=== PATIENT | male | born 1970 | race Caucasian/White ===

== ENCOUNTER → 2021-01-30 | Outpatient (CLI) | payer SELFPAY ==
[2021-01-30 14:47] LABS: SEMEN VOLUME 4.1 ML (1.5-5.0)
== END ==
LOC: LAB 13:57
PROVIDERS: ATTEND Surgery
DX: N46.9 Male infertility, unspecified (principal)
CPT/HCPCS: 89320

== ENCOUNTER 2021-09-12 19:40 | Emergency (ER) | payer BC ==
[~2021-09-12] VITALS: Ht 193 cm; Wt 138.0 kg
--- NOTE | 2021-09-12 19:56 | ED General ---
General Stated Complaint: SOB/DIZZY/ BP 177/127 Source of Information: Patient Exam Limitations: No Limitations History of Present Illness Date Seen by Provider: September 12, 2021 Time Seen by Provider: 19:51 Initial Comments Patient is a 50-year-old male who presents to the emergency department today with a chief complaint of mild headache, feeling a little short of breath, feeling a little dizzy and quite elevated blood pressures. He has had sinus congestion over the last week or so and has been taking [id number] cold and cough medications. He has known hypertension and recently had an increase in his lisinopril from 20 to 40 mg. He states he was not feeling very good today laid down and took a nap and when he got up felt like he was just needing to take extra breaths. No chest pain no shoulder pain no neck pain or back pain. He does not have a productive cough. Occasionally has some sinus congestion. Works as a social services technician. States that he is fully vaccinated for COVID. He is unsure whether or not he has been in contact with any COVID- positive persons. He is a smoker. Nothing makes the symptoms any better or any worse. He is also been taking a little Tylenol in addition to the cold medications. States his blood pressure has never been quite this high in the past. All other review of systems reviewed and negative except as stated. Timing/Duration: 4-6 Hours Severity: Mild Associated Systoms: Headaches (Mild), Other (Little short of breath a little dizzy) Allergies and Home Medications Allergies Coded Allergies: No Known Drug Allergies (Unverified , 09/12/21) Patient Home Medication List Home Medication List Reviewed: Yes Review of Systems Review of Systems Constitutional: see HPI EENTM: nose congestion Respiratory: cough (Minimal), short of breath Cardiovascular: no symptoms reported Gastrointestinal: no symptoms reported Genitourinary: no symptoms reported Musculoskeletal: no symptoms reported Skin: no symptoms reported Psychiatric/Neurological: Headache (Mild), Other (Mild disease) All Other Systems Reviewed Negative Unless Noted: Yes Physical Exam Vital Signs Vital Signs - First Documented 09/12/21 19:45 Temp 36.8 Pulse 98 Resp 18 B/P (MAP) 201/123 (149) Pulse Ox 98 O2 Delivery Room Air Capillary Refill : Height, Weight, BMI Height: '" Weight: lbs. oz. kg; BMI Method: General Appearance: No Apparent Distress, WD/WN Eyes: Bilateral Eye Normal Inspection, Bilateral Eye PERRL, Bilateral Eye EOMI HEENT: PERRL/EOMI, Pharynx Normal, TM Abnormal (R) (Occluded by cerumen) Neck: Normal Inspection, Non Tender, Supple Respiratory: Lungs Clear, Normal Breath Sounds, No Accessory Muscle Use, No Respiratory Distress Cardiovascular: Regular Rate, Rhythm (Heart rate 100), Normal Peripheral Pulses Extremity: Normal Inspection, Normal Range of Motion, Non Tender, No Calf Tenderness, No Pedal Edema Neurologic/Psychiatric: Alert, Oriented x3, No Motor/Sensory Deficits, Normal Mood/Affect, disability manager II-XII Norm as Tested Skin: Normal Color, Warm/Dry Progress/Results/Core Measures Suspected Sepsis SIRS Temperature: Pulse: Respiratory Rate: Blood Pressure / Mean: Results/Orders Lab Results Laboratory Tests Test 09/12/21 20:05 Range/Units SARS-CoV-2 RNA (RT-PCR) Not Detected Not Detecte My Orders Orders - ANA MEDINA MD Ekg Tracing (09/12/21 20:00) Chest Pa/Lat (2 View) (09/12/21 20:00) Covid 19 Inhouse Test (09/12/21 20:00) Isolation Central Supply Req (09/12/21 20:00) Clonidine Tablet (Catapres Tablet) (09/12/21 20:00) Medications Given in ED Current Medications Medications Dose Ordered Sig/Camelia Route Start Time Stop Time Status Last Admin Dose Admin Clonidine HCl 0.1 mg ONCE ONCE PO 09/12/21 20:00 09/12/21 20:03 DC 09/12/21 20:12 0.1 MG Vital Signs/I&O 09/12/21 19:45 Temp 36.8 Pulse 98 Resp 18 B/P (MAP) 201/123 (149) Pulse Ox 98 O2 Delivery Room Air Capillary Refill : Progress Note : Time: 21:29 Progress Note Patient is feeling much better as his blood pressure numbers have been coming down. I reviewed his chest x-ray and it is completely normal. His COVID test is negative. His EKG is reassuring. He actually feels less short of breath currently. He was able to get his son to text him a picture of the cough and cold medications that he has been taking. One of them is a pseudoephedrine medication the other 1 is a phenylephrine medication. These have likely been driving up his blood pressure and contributing to his overall symptoms. We talked about alternative medications to these. I suggested an allergy pill such as Zyrtec or Kenia without the decongestant and Coricidin HBP. Return precautions are discussed. Patient verbalized understanding, all questions are sought and answered ECG Initial ECG Impression Date: September 12, 2021 Initial ECG Impression Time: 20:15 Initial ECG Rate: 85 Initial ECG Rhythm: Normal Sinus Initial ECG Intervals: Normal Initial ECG Intervals UT 149 QRS [address]Tc [address] segment elevation or depression is noted, no ectopy. Counseling-Symptomatic: 3-10 Minutes Follow-up with PCP to: Discuss Further Options Departure Impression Primary Impression: Elevated blood pressure reading Additional Impression: Adverse effects of medication Qualified Codes: T50.905A - Adverse effect of unspecified drugs, medicaments and biological substances, initial encounter Disposition: HOME, SELF-CARE Condition: Stable Departure-Patient Inst. Decision time for Depature: 21:31 Referrals: [facility] – [place] (PCP/Family) Primary Care Physician Patient Instructions: High Blood Pressure in Adults Add. Discharge Instructions: Continue your daily medications as prescribed. Drink plenty of fluids to stay well-hydrated. You can take an over the counter allergy pill such as Kenia or Zyrtec (without the "D" for decongestant). Also CORIDIN HBP (or generic equivalent) is safe for patients with high blood pressure - it contains acetaminophen, chlorphineramine and dextromethorphan. These medications will not affect your BP. Return to the Emergency Department for any new, concerning or emergent complaints. ANA MEDINA MD September 12, 2021 19:56
[2021-09-12] MEDS ORDERED: cloNIDine 0.1 MG (CATAPRES) TAB PO ONE (20:00)
--- NOTE | 2021-09-12 21:25 | Diagnostic Imaging Report ---
EXAMINATION: Chest 2 view. HISTORY: SOB. COMPARISON: None available. FINDINGS: Heart size and pulmonary vasculature are normal. The lungs are clear without consolidation, pleural effusion or pneumothorax. The osseous structures are intact. IMPRESSION: No acute radiographic abnormality in the chest. Dictated by: Dictated on workstation # [id number]
[2021-09-12 21:48] VITALS: BP 159/101
== END 2021-09-12 21:49 | disposition home or self-care (01) ==
LOC: EDUNIT# 19:40 → ER 19:41
DX: R42 Dizziness and giddiness (principal); R06.02 Shortness of breath; R51.9 Headache, unspecified; T46.4X5A Adverse effect of angiotensin-converting-enzyme inhibitors, initial encounter; I10 Essential (primary) hypertension; F17.200 Nicotine dependence, unspecified, uncomplicated; Z79.899 Other long term (current) drug therapy; Z20.822 Contact with and (suspected) exposure to COVID-19
CPT/HCPCS: 71046; 87636; 93005